=== PATIENT | male | born 1980 ===

== ENCOUNTER 2018-05-14 06:49 | Day surgery (SDC) | payer OTHER | END 2018-05-14 15:20 | disposition home or self-care (01) | LOC: CIR.AMB 06:49 | DX: K60.3 Anal fistula (principal); K64.2 Third degree hemorrhoids ==

== ENCOUNTER 2018-09-24 11:28 | Day surgery (SDC) | payer OTHER | END 2018-09-24 20:10 | disposition home or self-care (01) | LOC: CIR.AMB 11:28 | DX: K60.3 Anal fistula (principal) ==